=== PATIENT | male | born 1955 | race Caucasian/White ===

== ENCOUNTER → 2018-04-15 14:56 | Outpatient (REF) | payer OTHER, SELFPAY ==
[2018-04-15 18:13] LABS: Basophils # 0.1 K/mm3 (0-0.2); Basophils % 0.7 % (0.1-2.0); Eosinophils # 0.5 K/mm3 (0.0-0.4); Eosinophils % 5.7 % (0.1-12.0); Hematocrit 48.1 % (42.0-52.0); Hemoglobin 15.6 g/dL (14.1-18.0); Lymphocytes # 2.4 K/mm3 (0.7-4.5); Lymphocytes % 25.4 K/mm3 (10-50); Mean Corpuscular HGB Conc 32.4 g/dL (31.8-35.4); Mean Corpuscular Hemoglobin 29.5 pg (27.0-31.2); Mean Corpuscular Volume 91.3 fl (80-94); Mean Platelet Volume 8.4 fl (7.4-10.4); Monocytes # 0.7 K/mm3 (0.1-1.0); Monocytes % 7.6 % (1.7-9.3); Neutrophils # 5.7 K/mm3 (1.8-7.8); Neutrophils % 60.6 % (37.0-80.0); Platelet Count 287 K/mm3 (142-424); Red Blood Count 5.27 M/mm3 (4.60-6.20); Red Cell Distribution Width 13.7 % (11.5-17.5); White Blood Count 9.3 K/mm3 (4.8-10.8)
[2018-04-15 19:15] LABS: Alanine Aminotransferase 19 U/L (12-78); Albumin Level 3.6 gm/dL (3.4-5.0); Albumin/Globulin Ratio 1.1 (1.1-1.8); Alkaline Phosphatase 84 U/L (46-116); Anion Gap 12.8 mEq/L (5-15); Aspartate Amino Transferase 13 U/L (15-37); Bilirubin,Total 0.7 mg/dL (0.2-1.0); Blood Urea Nitrogen 16 mg/dL (7-18); Calcium 8.7 mg/dL (8.5-10.1); Carbon Dioxide 26 mmol/L (21.0-32.0); Chloride 105 mmol/L (98-107); Cholesterol 185 mg/dL (140-200); Creatinine,Serum 1.05 mg/dL (0.70-1.30); Estimated Glomerular Filt Rate 71 ml/min (>60); Free T4 (Free Thyroxine) 1.01 ng/dl (0.76-1.46); GFR (African American) 86 ML/MIN (>60); Globulin 3.3 gm/dl (1.3-3.2); Glucose 82 mg/dL (74-106); HDL Cholesterol 31 mg/dL (27-67); LDL Cholesterol 139 mg/dL (0-130); Potassium 4.8 mmoL/L (3.5-5.1); Sodium 139 mmol/L (136-145); Thyroid Stimulating Hormone 2.09 uIU/ml (0.358-3.740); Total Protein,Serum 6.9 gm/dL (6.4-8.2); Triglycerides 74 mg/dL (30-200); VLDL Cholesterol 15 mg/dL (0-40)
[2018-04-17 08:27] LABS: Vitamin D 25 Hydroxy 43.8 ng/mL (30.0-100.0)
[2018-04-17 13:45] LABS: PSA, Free 0.24 ng/mL; Prostate Specific Ag 0.9 ng/mL (0.0-4.0)
== END ==
LOC: LAB 14:56
PROVIDERS: Visit Provider Emergency Medicine
DX: R53.83 Other fatigue (principal)
CPT/HCPCS: 80053; 80061; 82652; 84153; 84154; 84439; 84443; 85025

== ENCOUNTER → 2019-09-22 07:40 | Outpatient (CLI) | payer MEDICARE, OTHER, SELFPAY ==
--- NOTE | 2019-09-22 07:40 | MR_ITS ---
PROCEDURE: MR LUMBAR SPINE WO CON CLINICAL INDICATION: sciatica of right side without back pain Right-sided low back pain with numbness COMPARISON: No exams were available for comparison TECHNIQUE: Standard multiplanar multiecho sequences are performed without contrast. 3-D MIP and myelographic images are also rendered and reviewed FINDINGS: There is normal alignment.. There is mild degenerative disc disease at T11-T12 and T12-L1. L1-L2: Unremarkable. L2-L3: Mild facet and ligamentum hypertrophy with mild left lateral recess narrowing. L3-L4: Mild concentric bulging disc with disc desiccation along with facet ligamentum hypertrophy with mild bilateral lateral recess and foraminal narrowing L4-5: Facet ligamentum hypertrophy with mild bilateral lateral recess and foraminal narrowing. L5-S1: Facet ligamentum hypertrophy with mild bilateral foraminal narrowing Incidental note is made of a T1 and T2 hyperintensity area in the L1 vertebral body on the left at 1.3 cm consistent with lipoma or lipid rich hemangioma IMPRESSION: 1. There are mild degenerative changes with facet ligamentum hypertrophy with lateral recess and foraminal narrowing. Please see above for detailed description at each level. 2. No canal stenosis or extruded herniated disc. Dictated by: Germán Taylor MD 09/22/2019 08:49 Electronically signed by Germán Taylor MD in [place] 09/22/2019 08:49
== END ==
PROVIDERS: PCP Emergency Medicine; Visit Provider Emergency Medicine
DX: M54.31 Sciatica, right side (principal); M54.5 Low back pain
CPT/HCPCS: 72148; 76376

== ENCOUNTER 2024-09-22 08:22 | Outpatient (CLI) | payer MEDICARE, OTHER, SELFPAY ==
--- NOTE | 2024-09-22 08:34 | XR_ITS ---
FINAL REPORT CLINICAL HISTORY: LEFT ELBOW PAIN COMPARISON: None FINDINGS: LEFT ELBOW 3 views of the left elbow were obtained. There is no acute fracture or dislocation. There are minimal hypertrophic changes at the medial joint margin. There is a small ossific protuberance along the lateral epicondyle. There is no joint effusion. There is no acute soft tissue abnormality. IMPRESSION: Degenerative changes without acute abnormality identified. Reviewed, Interpreted and Dictated by Vinay Hernandez MD Transcribed by Marcelina Mukherjee Authenticated and [facility]
[2024-09-22 09:20] LABS: Basophils # 0.1 K/mm3 (0-0.2); Basophils % 1.2 % (0.1-2.0); Eosinophils # 0.6 K/mm3 (0.0-0.4); Eosinophils % 7.9 % (0.1-12.0); Hematocrit 47.7 % (42.0-52.0); Hemoglobin 16.3 g/dL (14.1-18.0); Lymphocytes # 1.7 K/mm3 (0.7-4.5); Lymphocytes % 22.1 % (10-50); Mean Corpuscular HGB Conc 34.2 g/dL (31.8-35.4); Mean Corpuscular Hemoglobin 30.6 pg (27.0-31.2); Mean Corpuscular Volume 89.5 fl (80-94); Mean Platelet Volume 10.2 fl (7.4-10.4); Monocytes # 0.7 K/mm3 (0.1-1.0); Monocytes % 9.3 % (1.7-9.3); Neutrophils # 4.6 K/mm3 (1.8-7.8); Neutrophils % 59.1 % (37.0-80.0); Platelet Count 272 K/mm3 (142-424); Red Blood Count 5.33 M/mm3 (4.60-6.20); Red Cell Distribution Width 13.6 % (11.5-17.5); White Blood Count 7.8 K/mm3 (4.8-10.8)
[2024-09-22 09:44] LABS: Chol/HDL Ratio 6.5 (1-3.5); Cholesterol 200 mg/dl (140-200); HDL Cholesterol 31 mg/dl (40-60); Triglycerides 98 mg/dl (30-150); VLDL Cholesterol 20 mg/dL (0-40)
[2024-09-22 09:57] LABS: Direct LDL Cholesterol 148.77 mg/dL (100-129)
[2024-09-22 10:16] LABS: Thyroid Stimulating Hormone 3.45 uIU/mL (0.465-4.68)
[2024-09-22 10:35] LABS: Vitamin B12 386 pg/mL (239-931)
[2024-09-23 10:10] LABS: Alanine Aminotransferase 19 U/L (12-78); Albumin/Globulin Ratio 1.6 (1.1-1.8); Alkaline Phosphatase 77 U/L (38-126); Anion Gap 12.9 mEq/L (5-15); Aspartate Amino Transferase 31 U/L (17-59); Bilirubin,Total 0.9 mg/dl (0.2-1.3); Blood Urea Nitrogen 18 mg/dl (9-20); Calcium 9.3 mg/dl (8.4-10.2); Carbon Dioxide 25 mmol/L (22.0-30.0); Chloride 106 mmol/L (98-107); Estimated Glomerular Filt Rate 83 ml/min (>60); GFR (African American) 101 ML/MIN (>60); Globulin 2.5 g/dL (1.3-3.2); Glucose 95 mg/dl (74-100); Potassium 4.9 mmoL/L (3.5-5.1); Sodium 139 mmol/L (136-145); Total Protein,Serum 6.5 g/dl (6.3-8.2)
== END 2024-09-22 23:59 | disposition home or self-care (01) ==
LOC: LAB 08:27
PROVIDERS: PCP Nurse Practitioner Family; Visit Provider Nurse Practitioner Family
DX: I10 Essential (primary) hypertension (principal); R42 Dizziness and giddiness; M25.522 Pain in left elbow
CPT/HCPCS: 36415; 73080; 80053; 80061; 82607; 83735; 84443; 85025